=== PATIENT | male | born 1960 | race Caucasian/White ===

== ENCOUNTER 2017-04-14 11:25 | Emergency (ER) | payer MEDICARE ==
[~2017-04-14] VITALS: Ht 167.6 cm; Wt 65.0 kg
[2017-04-14] VITALS (7 sets, daily range): BP systolic 131–199; BP diastolic 23–128; PULSE 69–83; RESP 16–18; TEMP 97.5; O2SAT 98–99
[2017-04-14 11:54] LABS: AUTOMATED NEUTROPHIL # 3.6 TH/MM3 (1.8-7.7); BASOPHIL # 0.1 TH/MM3 (0-0.2); EOSINOPHIL # 0.1 TH/MM3 (0-0.4); HEMATOCRIT 42.6 % (39.0-51.0); HEMOGLOBIN 14.6 GM/DL (13.0-17.0); LYMPH % 17.6 % (9.0-44.0); LYMPHOCYTE # 0.9 TH/MM3 (1.0-4.8); MEAN CORPUSCULAR HEMOGLOBIN 33.5 PG (27.0-34.0); MEAN CORPUSCULAR HGB CONC 34.2 % (32.0-36.0); MEAN PLATELET VOLUME 7.3 FL (7.0-11.0); MONO % 9.6 % (0.0-8.0); MONOCYTE # 0.5 TH/MM3 (0-0.9); NEUT % 70.8 % (16.0-70.0); PLATELET COUNT 232 TH/MM3 (150-450); RED BLOOD COUNT 4.35 MIL/MM3 (4.50-5.90); RED CELL DISTRIBUTION WIDTH 12.6 % (11.6-17.2); WHITE BLOOD COUNT 5.2 TH/MM3 (4.0-11.0)
[2017-04-14] MEDS ORDERED: SODIUM CHLOR 0.9% 1000 ML INJ 1,000 ML IV SCH (11:59)
[2017-04-14] MEDS ORDERED: hydrALAZINE HCL 20 MG/ML VIAL IV PUSH ONE (12:00)
[2017-04-14 12:01] LABS: CHLORIDE 102 MEQ/L (98-107); SODIUM (NA) 136 MEQ/L (136-145)
[2017-04-14 12:05] LABS: ALBUMIN 3.6 GM/DL (3.4-5.0); BICARBONATE 28.7 MEQ/L (21.0-32.0); BLOOD UREA NITROGEN 15 MG/DL (7-18); GLUCOSE,RANDOM 148 MG/DL (74-106); INTERNATIONAL NORMALIZED RATIO 1.1 RATIO; MAGNESIUM 2.4 MG/DL (1.5-2.5); PROTHROMBIN TIME - PATIENT 11.4 SEC (9.8-11.6)
--- NOTE | 2017-04-14 12:05 | RADRPT ---
EXAM DATE/TIME: 04/14/2017 11:52 [facility] COMPARISON: No previous studies available for comparison. INDICATIONS : Palpitations & weakness. MEDICAL HISTORY : Hypertension. Hypercholesterolemia. SURGICAL HISTORY : None. ENCOUNTER: Initial ACUITY: 2 days PAIN SCORE: 0/10 LOCATION: chest FINDINGS: Portable AP view of the chest demonstrates a normal-sized cardiac silhouette. The lungs demonstrate n o definite effusion, consolidation, or pneumothorax. The bones and soft tissues demonstrate no acute finding. Lungs are mildly underinflated. CONCLUSION: No acute cardiopulmonary abnormality is identified. Antony Polanco MD on April 14, 2017 at 12:02 Board Certified Radiologist. This report was verified electronically.
[2017-04-14 12:08] LABS: ALT (GPT) 52 U/L (12-78); AST (GOT) 31 U/L (15-37); CREATININE 0.88 MG/DL (0.60-1.30); GLOMERULAR FILTRATION RATE 90 ML/MIN (>89)
[2017-04-14] MEDS ORDERED: PROP80CA PO (12:08)
[2017-04-14] MEDS ORDERED: CARB200T PO (12:08)
[2017-04-14] MEDS ORDERED: SERO200T PO (12:08)
[2017-04-14] MEDS ORDERED: DIAZ5TAB PO (12:08)
[2017-04-14] MEDS ORDERED: BACL10TA PO (12:08)
[2017-04-14] MEDS ORDERED: HYDR-3516 PO (12:08)
[2017-04-14] MEDS ORDERED: VIAG100T PO (12:08)
--- NOTE | 2017-04-14 12:08 | RADRPT ---
EXAM DATE/TIME: 04/14/2017 11:49 [facility] COMPARISON: No previous studies available for comparison. INDICATIONS : Dizziness, blurred vision and general weakness since yesterday. RADIATION DOSE: 63.20 CTDIvol (mGy) MEDICAL HISTORY : None SURGICAL HISTORY : None. ENCOUNTER: Initial ACUITY: 1 day PAIN SCALE: 0/10 LOCATION: cranial TECHNIQUE: Multiple contiguous axial images were obtained of the head. Using automated exposure control and adj ustment of the mA and/or kV according to patient size, radiation dose was kept as low as reasonably a chievable to obtain optimal diagnostic quality images. DICOM format image data is available electro nically for review and comparison. FINDINGS: CEREBRUM: The ventricles are normal for age. No evidence of midline shift, mass lesion, hemorrhage or acute in farction. No extra-axial fluid collections are seen. POSTERIOR FOSSA: The cerebellum and brainstem are intact. The 4th ventricle is midline. The cerebellopontine angle i s unremarkable. EXTRACRANIAL: The visualized portion of the orbits is intact. SKULL: The calvaria is intact. No evidence of skull fracture. CONCLUSION: Normal examination. Serjio Ziegler Jr., MD on April 14, 2017 at 12:04 Board Certified Radiologist. This report was verified electronically.
[2017-04-14 12:10] LABS: TOTAL BILIRUBIN ADULT 0.3 MG/DL (0.2-1.0); TOTAL PROTEIN 6.5 GM/DL (6.4-8.2)
[2017-04-14 12:11] LABS: ALKALINE PHOSPHATASE 65 U/L (45-117)
[2017-04-14 12:13] LABS: TROPONIN I LESS THAN 0.02 NG/ML (0.02-0.05)
--- NOTE | 2017-04-14 12:13 | PD ---
HPI Chief Complaint: Dizziness Time Seen by Provider: 11:28 Travel History International Travel<30 days: No Contact w/Intl Traveler<30days: No Traveled to known affect area: No History of Present Illness HPI This is a 56-year-old male with a history of hypertension, bipolar disorder and chronic pain who presents for dizziness. He states that yesterday while at work , he developed an episode of lightheadedness and general weakness. This resolved after resting. He states that today while at work, the symptoms came back. He states that when he is feeling this way, he feels lightheaded, generally weak, mildly nauseated. He complains of associated horizontal diplopia/blurred vision. This occurred yesterday as well. He denies unilateral weakness, numbness, tingling. No difficulty speaking, swallowing. No chest pain or shortness of breath. He states that he has been compliant with his medications. He denies associated fever, chills, cough, congestion, vomiting, diarrhea. No melena or hematochezia. No urinary complaints. Symptoms are mild in severity. Weak in nature. Onset gradual. Alleviated by rest. PFSH Past Medical History Bipolar Disorder: Yes Cardiovascular Problems: Yes (HTN) Hypertension: Yes Immunizations Current: Yes Past Surgical History Abdominal Surgery: Yes (GASTRIC BYPASS) Other Surgery: Yes (BACK SURGERY) Social History Alcohol Use: Yes (OCC) Tobacco Use: No (NEVER) Substance Use: No Allergies-Medications (Allergen,Severity, Reaction): Coded Allergies: NSAIDS (Non-Steroidal Anti-Inflamma (Verified Adverse Reaction, Intermediate, GASTRIC BLEEDING, 04/14/17) Reported Meds & Prescriptions Reported Meds & Active Scripts Active Reported Zoloft (Sertraline HCl) 100 Mg Tab 100 Mg PO HS Viagra (Sildenafil Citrate) 100 Mg Tab 100 Mg PO DAILY PRN Baclofen 10 Mg Tab 10 Mg PO TID PRN Hydrocodone-Acetaminophen 5-325 mg Tab 1 Tab PO BID PRN Diazepam 5 Mg Tab 5 Mg PO BID PRN Seroquel (Quetiapine Fumarate) 200 Mg Tab 200 Mg PO HS Carbamazepine 200 Mg Tab 200 Mg PO DAILY Propranolol ER 24 HR (Propranolol HCl) 80 Mg Cap 80 Mg PO DAILY Review of Systems Except as stated in HPI: all other systems reviewed are Neg Physical Exam Narrative GENERAL: Alert, well nourished, well appearing patient resting on the bed in no acute distress. Vital Signs reviewed SKIN: Focused skin assessment warm/dry. HEAD: Atraumatic. Normocephalic. EYES: Pupils equal and round. No scleral icterus. No injection or drainage. Extraocular movements intact. Visual acuity reviewed ENT: No nasal bleeding or discharge. Mucous membranes pink and moist. NECK: Trachea midline. No JVD. Spontaneous, painless full range of motion with no meningismus CARDIOVASCULAR: Regular rate and rhythm. No murmur appreciated. Extremities warm and well perfused with bounding peripheral pulses RESPIRATORY: No accessory muscle use. Clear to auscultation. Breath sounds equal bilaterally. Breathing easily and speaking in full sentences GASTROINTESTINAL: Abdomen soft, non-tender, nondistended. Normal bowel sounds. No rigid, rebound, guarding MUSCULOSKELETAL: No obvious deformities. No clubbing. No cyanosis. No edema. Compartments are soft NEUROLOGICAL: Awake and alert. No obvious cranial nerve deficits. Motor grossly within normal limits. Normal speech. Sensation intact. Normal gait. No pronator drift. Data Data Last Documented VS Vital Signs Date Time Temp Pulse Resp B/P (MAP) Pulse Ox O2 Delivery O2 Flow Rate FiO2 04/14/17 14:35 72 16 137/97 (110) 98 04/14/17 13:35 Room Air 04/14/17 11:40 97.5 Vital Signs Date Time Temp Pulse Resp B/P (MAP) Pulse Ox O2 Delivery O2 Flow Rate FiO2 04/14/17 14:35 72 16 137/97 (110) 98 04/14/17 13:35 76 16 131/92 (105) 99 Room Air 04/14/17 12:52 83 18 141/101 (114) 99 Room Air 04/14/17 12:34 81 148/101 (117) 83 146/102 (117) 83 156/103 (120) 04/14/17 12:09 69 16 181/123 (142) 98 Room Air 04/14/17 11:45 16 98 Room Air 04/14/17 11:45 71 16 98 Room Air 04/14/17 11:40 97.5 71 16 199/128 (151) 98 Orders Orders Electrocardiogram (04/14/17 11:28) Complete Blood Count With Diff (04/14/17 11:28) Comprehensive Metabolic Panel (04/14/17 11:28) Magnesium (Mg) (04/14/17 11:28) Ckmb (Isoenzyme) Profile (04/14/17 11:28) Troponin I (04/14/17 11:28) Act Partial Throm Time (Ptt) (04/14/17 11:28) Prothrombin Time / Inr (Pt) (04/14/17 11:28) Urinalysis - C+S If Indicated (04/14/17 11:28) Chest, Single Ap (04/14/17 11:28) Ct Brain W/O Iv Contrast(Rout) (04/14/17 11:28) Ecg Monitoring (04/14/17 11:28) Iv Access Insert/Monitor (04/14/17 11:28) Oximetry (04/14/17 11:28) Orthostatic Vital Signs (04/14/17 11:28) Influenzae A/B Antigen (04/14/17 11:28) Drug Screen, Random Urine (04/14/17 11:28) Hydralazine Inj (Apresoline Inj) (04/14/17 12:00) Sodium Chlor 0.9% 1000 Ml Inj (Ns 1000 M (04/14/17 11:59) Ed Discharge Order (04/14/17 14:18) Labs Laboratory Tests Test 04/14/17 11:45 04/14/17 12:25 White Blood Count 5.2 TH/MM3 Red Blood Count 4.35 MIL/MM3 Hemoglobin 14.6 GM/DL Hematocrit 42.6 % Mean Corpuscular Volume 98.0 FL Mean Corpuscular Hemoglobin 33.5 PG Mean Corpuscular Hemoglobin Concent 34.2 % Red Cell Distribution Width 12.6 % Platelet Count 232 TH/MM3 Mean Platelet Volume 7.3 FL Neutrophils (%) (Auto) 70.8 % Lymphocytes (%) (Auto) 17.6 % Monocytes (%) (Auto) 9.6 % Eosinophils (%) (Auto) 1.0 % Basophils (%) (Auto) 1.0 % Neutrophils # (Auto) 3.6 TH/MM3 Lymphocytes # (Auto) 0.9 TH/MM3 Monocytes # (Auto) 0.5 TH/MM3 Eosinophils # (Auto) 0.1 TH/MM3 Basophils # (Auto) 0.1 TH/MM3 CBC Comment DIFF FINAL Differential Comment Prothrombin Time 11.4 SEC Prothromb Time International Ratio 1.1 RATIO Activated Partial Thromboplast Time 25.2 SEC Blood Urea Nitrogen 15 MG/DL Creatinine 0.88 MG/DL Random Glucose 148 MG/DL Total Protein 6.5 GM/DL Albumin 3.6 GM/DL Calcium Level 8.0 MG/DL Magnesium Level 2.4 MG/DL Alkaline Phosphatase 65 U/L Aspartate Amino Transf (AST/SGOT) 31 U/L Alanine Aminotransferase (ALT/SGPT) 52 U/L Total Bilirubin 0.3 MG/DL Sodium Level 136 MEQ/L Potassium Level 3.8 MEQ/L Chloride Level 102 MEQ/L Carbon Dioxide Level 28.7 MEQ/L Anion Gap 5 MEQ/L Estimat Glomerular Filtration Rate 90 ML/MIN Total Creatine Kinase 65 U/L Troponin I LESS THAN 0.02 NG/ML Urine Collection Type CLEAN CATCH Urine Color YELLOW Urine Turbidity CLEAR Urine pH 7.0 Urine Specific [place] 1.012 Urine Protein NEG mg/dL Urine Glucose (UA) 100 mg/dL Urine Ketones NEG mg/dL Urine Occult Blood NEG Urine Nitrite NEG Urine Bilirubin NEG Urine Leukocyte Esterase NEG Urine RBC 0-3 /hpf Urine Squamous Epithelial Cells 0-5 /hpf Microscopic Urinalysis Comment CULT NOT INDICATED Urine Collection Time 12:25 Urine Opiates Screen NEG Urine Barbiturates Screen NEG Urine Amphetamines Screen NEG Urine Benzodiazepines Screen NEG Urine Cocaine Screen NEG Urine Cannabinoids Screen NEG MDM Medical Decision Making Medical Screen Exam Complete: Yes Emergency Medical Condition: Yes Medical Record Reviewed: Yes Interpretation(s) EKG shows sinus rhythm with a rate of 68. No STEMI Last [address] 04/14/17 1128 Signed Impressions: Service Date/Time: Friday, April 14, 2017 11:49 - CONCLUSION: Normal examination. Serjio Ziegler Jr., MD Chest X-Ray 04/14/17 1128 Signed Impressions: Service Date/Time: Friday, April 14, 2017 11:52 - CONCLUSION: No acute cardiopulmonary abnormality is identified. Antony Polanco MD Laboratory Tests Test 04/14/17 11:45 04/14/17 12:25 White Blood Count 5.2 TH/MM3 Red Blood Count 4.35 MIL/MM3 Hemoglobin 14.6 GM/DL Hematocrit 42.6 % Mean Corpuscular Volume 98.0 FL Mean Corpuscular Hemoglobin 33.5 PG Mean Corpuscular Hemoglobin Concent 34.2 % Red Cell Distribution Width 12.6 % Platelet Count 232 TH/MM3 Mean Platelet Volume 7.3 FL Neutrophils (%) (Auto) 70.8 % Lymphocytes (%) (Auto) 17.6 % Monocytes (%) (Auto) 9.6 % Eosinophils (%) (Auto) 1.0 % Basophils (%) (Auto) 1.0 % Neutrophils # (Auto) 3.6 TH/MM3 Lymphocytes # (Auto) 0.9 TH/MM3 Monocytes # (Auto) 0.5 TH/MM3 Eosinophils # (Auto) 0.1 TH/MM3 Basophils # (Auto) 0.1 TH/MM3 CBC Comment DIFF FINAL Differential Comment Prothrombin Time 11.4 SEC Prothromb Time International Ratio 1.1 RATIO Activated Partial Thromboplast Time 25.2 SEC Blood Urea Nitrogen 15 MG/DL Creatinine 0.88 MG/DL Random Glucose 148 MG/DL Total Protein 6.5 GM/DL Albumin 3.6 GM/DL Calcium Level 8.0 MG/DL Magnesium Level 2.4 MG/DL Alkaline Phosphatase 65 U/L Aspartate Amino Transf (AST/SGOT) 31 U/L Alanine Aminotransferase (ALT/SGPT) 52 U/L Total Bilirubin 0.3 MG/DL Sodium Level 136 MEQ/L Potassium Level 3.8 MEQ/L Chloride Level 102 MEQ/L Carbon Dioxide Level 28.7 MEQ/L Anion Gap 5 MEQ/L Estimat Glomerular Filtration Rate 90 ML/MIN Total Creatine Kinase 65 U/L Troponin I LESS THAN 0.02 NG/ML Urine Collection Type CLEAN CATCH Urine Color YELLOW Urine Turbidity CLEAR Urine pH 7.0 Urine Specific [place] 1.012 Urine Protein NEG mg/dL Urine Glucose (UA) 100 mg/dL Urine Ketones NEG mg/dL Urine Occult Blood NEG Urine Nitrite NEG Urine Bilirubin NEG Urine Leukocyte Esterase NEG Urine RBC 0-3 /hpf Urine Squamous Epithelial Cells 0-5 /hpf Microscopic Urinalysis Comment CULT NOT INDICATED Urine Collection Time 12:25 Urine Opiates Screen NEG Urine Barbiturates Screen NEG Urine Amphetamines Screen NEG Urine Benzodiazepines Screen NEG Urine Cocaine Screen NEG Urine Cannabinoids Screen NEG Differential Diagnosis Accelerated hypertension, near syncope, cranial nerve palsy, CVA, TIA, electrolyte abnormality Narrative Course Patient was placed on the flight engineer performance qualified. IV access was established. Labs, imaging were performed. Patient was given IV fluids and hydralazine. He had improvement in his blood pressure. The patient had gradual resolution of his mild horizontal diplopia. He stated that it seemed just blurred. His visual acuity is normal. I reviewed the results of the workup with him and recommended that he be admitted for further evaluation and care. The patient is adamant that he does not want to be admitted. He states that [place] around the [place] and will return if his symptoms come back. I counseled him regarding the importance of close outpatient follow-up, rest, continued antihypertensive medication. Patient understands the importance of close outpatient follow-up. He understands he may require further testing and treatment as an outpatient. He understands strict return indications. He is comfortable with this plan and eager to go home. Diagnosis Primary Impression: Near syncope Additional Impressions: Diplopia Accelerated hypertension Referrals: Primary Care Physician 2 days Patient Instructions: Diplopia (DC), General Instructions, Near Syncope (ED) Departure Forms: Tests/Procedures, Work Release Enter return to work date: Apr 16, 2017 Additional Instructions: Drink plenty of fluids to stay well-hydrated. Avoid alcohol and caffeine. Continue current home blood pressure medication. Follow up closely with primary physician within the next 2 days. Call today to make an appointment. Return with worsening symptoms. We are happy to see you at any time. Med/Other Pt SpecificInfo: No Change to Meds Disposition: 01 DISCHARGE HOME Condition: Stable Trista Meyer MD Apr 14, 2017 12:13
[2017-04-14 12:31] LABS: BILIRUBIN, URINE NEG (NEG); BLOOD, URINE NEG (NEG); GLUCOSE,URINE 100 mg/dL (NEG); KETONE, URINE NEG (NEG); NITRITE,URINE NEG (NEG); URINE LEUKOCYTE ESTERASE NEG (NEG)
[2017-04-14 12:37] LABS: URINE COLOR YELLOW (YELLW/STRAW)
[2017-04-14 12:38] LABS: RBC, URINE 0-3 /hpf (0-3); SQUAMOUS EPITHELIAL CELL URINE 0-5 /hpf (0-5)
[2017-04-14] MEDS ORDERED: ZOLO100T PO (13:52)
--- NOTE | 2017-04-14 19:50 | EKG ---
Date Performed: 04/14/2017 Time Performed: 11:35:43 PTAGE: 56 years EKG: Sinus rhythm NORMAL ECG NO PREVIOUS TRACING DOCTOR: Fredis Baca Interpretating Date/Time 04/14/2017 19:48:21
== END 2017-04-14 14:38 | disposition home or self-care (01) ==
LOC: PHED 11:25
DX: R55 Syncope and collapse (principal); H53.2 Diplopia; I10 Essential (primary) hypertension; F31.9 Bipolar disorder, unspecified
CPT/HCPCS: 70450; 71045; 80053; 80307; 81001; 82550; 83735; 84484; 85025; 85610; 85730; 87804; 93005; 96361; 96374; 99285; J0360; J7030

== ENCOUNTER 2017-06-07 07:47 | Emergency (ER) | payer MEDICARE ==
[~2017-06-07] VITALS: Ht 167.6 cm; Wt 65.8 kg
[~2017-06-07 07:47] MED LIST changes: -AMLO10TA2 PO; -HYDR-3288 PO; -HYDR-3366 PO; -PROP60 PO; -TEGR200T PO
[2017-06-07 07:59] VITALS: BP 138/91; PULSE 63; RESP 16; TEMP 97.4; O2SAT 99
[2017-06-07] MEDS ORDERED: AMLO10TA2 PO (08:58)
[2017-06-07] MEDS ORDERED: TEGR200T PO (08:58)
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
[2017-06-07 10:15] LABS: AUTOMATED NEUTROPHIL # 3.5 TH/MM3 (1.8-7.7); BASOPHIL % 0.9 % (0.0-2.0); EOSINOPHIL # 0.1 TH/MM3 (0-0.4); EOSINOPHIL % 1.2 % (0.0-4.0); HEMATOCRIT 39.1 % (39.0-51.0); HEMOGLOBIN 13.4 GM/DL (13.0-17.0); LYMPH % 25.1 % (9.0-44.0); LYMPHOCYTE # 1.4 TH/MM3 (1.0-4.8); MEAN CELL VOLUME 98.5 FL (80.0-100.0); MEAN CORPUSCULAR HEMOGLOBIN 33.9 PG (27.0-34.0); MEAN CORPUSCULAR HGB CONC 34.4 % (32.0-36.0); MONO % 9.3 % (0.0-8.0); MONOCYTE # 0.5 TH/MM3 (0-0.9); NEUT % 63.5 % (16.0-70.0); PLATELET COUNT 225 TH/MM3 (150-450); RED BLOOD COUNT 3.97 MIL/MM3 (4.50-5.90); RED CELL DISTRIBUTION WIDTH 12.3 % (11.6-17.2); WHITE BLOOD COUNT 5.5 TH/MM3 (4.0-11.0)
[2017-06-07 10:24] LABS: CHLORIDE 108 MEQ/L (98-107); SODIUM (NA) 144 MEQ/L (136-145)
[2017-06-07 10:28] LABS: BICARBONATE 29.7 MEQ/L (21.0-32.0); CALCIUM 8.3 MG/DL (8.5-10.1); GLUCOSE,RANDOM 85 MG/DL (74-106)
[2017-06-07 10:29] LABS: BLOOD UREA NITROGEN 18 MG/DL (7-18)
[2017-06-07 10:32] LABS: CREATININE 0.91 MG/DL (0.60-1.30); GLOMERULAR FILTRATION RATE 87 ML/MIN (>89)
[2017-06-07 10:36] LABS: TROPONIN I LESS THAN 0.02 NG/ML (0.02-0.05)
--- NOTE | 2017-06-07 10:58 | RADRPT ---
EXAM DATE/TIME: 06/07/2017 10:21 [facility] COMPARISON: CT BRAIN W/O CONTRAST, April 14, 2017, 11:49. INDICATIONS : Fell one week ago. RADIATION DOSE: 51.09 CTDIvol (mGy) MEDICAL HISTORY : Hypertension. SURGICAL HISTORY : Gastric bypass. Back surgery. ENCOUNTER: Initial ACUITY: 1 week PAIN SCALE: 4/10 LOCATION: cranial TECHNIQUE: Multiple contiguous axial images were obtained of the head. Using automated exposure control and adj ustment of the mA and/or kV according to patient size, radiation dose was kept as low as reasonably a chievable to obtain optimal diagnostic quality images. DICOM format image data is available electro nically for review and comparison. FINDINGS: CEREBRUM: The ventricles are normal for age. No evidence of midline shift, mass lesion, hemorrhage or acute in farction. No extra-axial fluid collections are seen. POSTERIOR FOSSA: The cerebellum and brainstem are intact. The 4th ventricle is midline. The cerebellopontine angle i s unremarkable. EXTRACRANIAL: The visualized portion of the orbits is intact. SKULL: The calvaria is intact. No evidence of skull fracture. CONCLUSION: No acute disease. Lon Moss MD on June 07, 2017 at 10:47 Board Certified Radiologist. This report was verified electronically.
--- NOTE | 2017-06-07 12:20 | RADRPT ---
EXAM DATE/TIME: 06/07/2017 10:24 [facility] COMPARISON: No previous studies available for comparison. INDICATIONS : Fell one week ago. Back pain. RADIATION DOSE: 32.58 CTDIvol (mGy) ; Combined studies - Thoracic Spine/Lumbar Spine MEDICAL HISTORY : Hypertension. SURGICAL HISTORY : Gastric bypass. Back surgery. ENCOUNTER: Initial ACUITY: 1 week PAIN SCALE: 6/10 LOCATION: spine TECHNIQUE: Volumetric scanning of the thoracic spine was performed. Multiplanar reconstructions in the sagittal , coronal and oblique axial planes were performed. Using automated exposure control and adjustment o f the mA and/or kV according to patient size, radiation dose was kept as low as reasonably achievable to obtain optimal diagnostic quality images. DICOM format image data is available electronically f or review and comparison. FINDINGS: There is acute fracturing of the superior aspect of the T12 vertebral body. There is cortical bucklin g seen at the anterior superior cortex of T12. There is minimal loss of height anteriorly at T12 with the anterior aspect of T12 losing approximately 10-20% of its original height. The posterior vertebr al body retains normal height at T12. The vertebral bodies of the thoracic spine are in normal alignm ent without evidence of subluxation. T1-T2: Normal. T2-T3: The thecal sac has a normal diameter. No evidence of disc bulge or protrusion. T3-T4: The thecal sac has a normal diameter. No evidence of disc bulge or protrusion. T4-T5: The thecal sac has a normal diameter. No evidence of disc bulge or protrusion. T5-T6: The thecal sac has a normal diameter. No evidence of disc bulge or protrusion. T6-T7: The thecal sac has a normal diameter. No evidence of disc bulge or protrusion. T7-T8: The thecal sac has a normal diameter. No evidence of disc bulge or protrusion. T8-T9: The thecal sac has a normal diameter. No evidence of disc bulge or protrusion. T9-T10: The thecal sac has a normal diameter. No evidence of disc bulge or protrusion. T10-T11: The thecal sac has a normal diameter. No evidence of disc bulge or protrusion. T11-T12: The thecal sac has a normal diameter. No evidence of disc bulge or protrusion. T12-L1: The thecal sac has a normal diameter. No evidence of disc bulge or protrusion. CONCLUSION: Acute fracturing of the superior aspect of T12 vertebral body with mild loss of height anteriorly of the T12 vertebral body. Antony Reese MD on June 07, 2017 at 12:13 Board Certified Radiologist. This report was verified electronically.
--- NOTE | 2017-06-07 12:25 | RADRPT ---
EXAM DATE/TIME: 06/07/2017 10:24 [place] COMPARISON: No previous studies available for comparison. INDICATIONS : Fell one week ago. Back pain. RADIATION DOSE: 32.58 CTDIvol (mGy) ; Combined studies - Thoracic Spine/Lumbar Spine MEDICAL HISTORY : Hypertension. SURGICAL HISTORY : Gastric bypass. Back surgery. ENCOUNTER: Initial ACUITY: 1 week PAIN SCALE: 6/10 LOCATION: spine TECHNIQUE: Volumetric scanning of the lumbar spine was performed. Multiplanar reconstructions in the sagittal, coronal and oblique axial planes were performed. Using automated exposure control and adjustment of the mA and/or kV according to patient size, radiation dose was kept as low as reasonably achievable t o obtain optimal diagnostic quality images. DICOM format image data is available electronically for review and comparison. FINDINGS: VERTEBRAE: Again noted is the acute fracturing of the superior aspect of T12 are fully described in the thoracic spine CT examination. The lumbar vertebral bodies are normal in height. Transpedicular screws are se en at the L3-S1 levels. There is anterior hardware seen at the L3, L4-L5 and S1 levels. What appear t o be bone plugs are seen at the L3-L4, L4-L5, and L5-S1 levels. ALIGNMENT: No evidence of subluxation. T12-L1: The thecal sac has a normal diameter. No evidence of disc bulge or protrusion. The neural foramina are patent bilaterally. L1-L2: The thecal sac has a normal diameter. No evidence of disc bulge or protrusion. The neural foramina are patent bilaterally. L2-L3: There is mild asymmetric disc bulging worse on the left. There is moderate facet hypertrophy especial ly on the right. L3-L4: Again noted is the postsurgical change. The thecal sac has a normal diameter. No evidence of disc bu lge or protrusion. The neural foramina are patent bilaterally. L4-L5: Again noted is the postsurgical change. The thecal sac has a normal diameter. No evidence of disc bu lge or protrusion. The neural foramina are patent bilaterally. L5-S1: Again noted is the postsurgical change. The thecal sac has a normal diameter. No evidence of disc bu lge or protrusion. The neural foramina are patent bilaterally. CONCLUSION: 1. Postsurgical change at the L3-S1 levels as described above. 2. Mild asymmetric disc bulging worse on the left at the L2-L3 level. 3. Acute T12 fracture more fully described in the CT of the thoracic spine. Antony Reese MD on June 07, 2017 at 12:19 Board Certified Radiologist. This report was verified electronically.
[2017-06-07] MEDS ORDERED: PROP60 PO (12:47)
[2017-06-07] MEDS ORDERED: HYDR-3288 PO (12:47)
[2017-06-07] MEDS ORDERED: HYDR-3366 PO (12:52)
[2017-06-07 13:02] VITALS: BP 168/101; PULSE 59; RESP 16; O2SAT 100
--- NOTE | 2017-06-07 15:11 | EKG ---
Date Performed: 06/07/2017 Time Performed: 10:00:11 PTAGE: 56 years EKG: SINUS BRADYCARDIA Since the previous tracing, no significant change noted BORDERLINE ECG PREVIOUS TRACING : 04/14/2017 11.35 DOCTOR: Lisa Evans Interpretating Date/Time 06/07/2017 15:08:35
== END 2017-06-07 13:15 | disposition home or self-care (01) ==
LOC: PHED 07:47
DX: S22.089A Unspecified fracture of T11-T12 vertebra, initial encounter for closed fracture (principal); R00.1 Bradycardia, unspecified; W19.XXXA Unspecified fall, initial encounter; Y92.002 Bathroom of unspecified non-institutional (private) residence as the place of occurrence of the external cause; I10 Essential (primary) hypertension; F31.9 Bipolar disorder, unspecified; Z98.1 Arthrodesis status; Z98.84 Bariatric surgery status; Z87.442 Personal history of urinary calculi; Z79.899 Other long term (current) drug therapy; Z46.89 Encounter for fitting and adjustment of other specified devices
CPT/HCPCS: 70450; 72128; 72131; 80048; 84484; 85025; 93005; 99285

== ENCOUNTER → 2017-06-07 | Outpatient (CLI) | payer MEDICARE ==
[~2017-06-07] MED LIST: AMLO10TA2 PO; BACL10TA PO; CARB200T PO; DIAZ5TAB PO; HYDR-3288 PO; HYDR-3366 PO; HYDR-3516 PO; PROP60 PO; PROP80CA PO; SERO200T PO; TEGR200T PO; VIAG100T PO; ZOLO100T PO
== END ==
LOC: HORT 14:11
PROVIDERS: ATTEND Emergency Medicine
DX: Z46.89 Encounter for fitting and adjustment of other specified devices (principal)
CPT/HCPCS: L0200; L0484